=== PATIENT | male | born 1975 | race Caucasian/White ===

== ENCOUNTER 2022-03-30 11:34 | Emergency (ER) | payer BC, OTHER ==
[~2022-03-30] VITALS: Ht 182.9 cm; Wt 98.5 kg
--- OUTSIDE RECORDS SUMMARY | 2022-03-30 11:36 | XMS ---
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 EDuncan VISIT COUNT (12 MO.) [address] [place] [id number] [address] [place] TOTAL 2 NOTE: Visits indicate total known visits. ED/UCC VISIT TRACKING (12 MO.) 03/30/2022 11:35 [facility] [place] TYPE: Emergency COMPLAINT: - WEAKNESS,CRAMPING,ABD PAIN 11/13/2021 14:36 [facility] OR TYPE: Emergency DIAGNOSES: - BACK PAIN OJI - Pain in thoracic spine - Fall (on) (from) other stairs and steps, initial encounter INPATIENT VISIT TRACKING (12 MO.) No inpatient visits to display in this time frame [email or web address]
[2022-03-30] MEDS ORDERED: METRONIDAZOLE500 MG PO (16:11)
[2022-03-30] MEDS ORDERED: CIPRO500 MG PO (16:11)
== END 2022-03-30 16:51 | disposition home or self-care (01) ==
LOC: ED 11:34
DX: K57.32 Diverticulitis of large intestine without perforation or abscess without bleeding (principal)
CPT/HCPCS: 36415; 74177; 80053; 81001; 85025; 96365; 96368; 96375; 99284-25; J0744; J1170; J1885; J7030; Q9967